=== PATIENT | male | born 1955 | race Caucasian/White ===

== ENCOUNTER 2022-11-10 09:04 | Inpatient (IN) | payer OTHER ==
[~2022-11-10] VITALS: Ht 299.7 cm; Wt 5.0 kg
--- NOTE | 2022-11-10 09:15 | NUR ---
SE RECIBE PACIENTE DE CRUCERO DE AMBULANCIA ALERTA Y ORIENTADO X3 QUIEN REFIERE DIFICULTAD RESPIRATORIA. SE MONITOREAN LOS SV Y SE UBICA EN CHEST PAIN
[2022-11-10] MEDS ORDERED: RANEXA500 MG PO (09:29)
[2022-11-10] MEDS ORDERED: ENTRESTO 24 MG1 EACH PO (09:29)
[2022-11-10] MEDS ORDERED: CARVEDILOL ER40 MG PO (09:30)
[2022-11-10] MEDS ORDERED: MEXILETINE HCL150 MG PO (09:30)
[2022-11-10] MEDS ORDERED: GLUMETZA500 MG PO (09:30)
[2022-11-10] MEDS ORDERED: BUMETANIDE2 MG PO (09:31)
[2022-11-10] MEDS ORDERED: GLIMEPIRIDE2 M1 PO (09:31)
[2022-11-10] MEDS ORDERED: XARELTO10 MG PO (09:31)
[2022-11-10] MEDS ORDERED: ALDACTONE25 MG PO (09:31)
[2022-11-10] MEDS ORDERED: FARXIGA10 MG PO (09:32)
[2022-11-10] MEDS ORDERED: ATORVASTATIN CA80 MG PO (09:32)
[2022-11-10] MEDS ORDERED: ISOSORBIDE MONO60 MG PO (09:32)
[2022-11-10] MEDS ORDERED: AMIODARONE HCL100 MG PO (09:32)
[2022-11-10] MEDS ORDERED: ASA81 MG PO (09:33)
--- NOTE | 2022-11-10 16:03 | NUR ---
SE RECIBE PTE MASCULINO DE 67 ANOS ALERTA Y ORIENTADO X3 QUIEN AL MOMENTO NO REFIERE DOLOR. PTE SE OBSERBA EN DESCANSO ABSOLUTO EN CAMA CONECTADO A MONITOR CARDIACO BERNARD. PTE SE MANTIENE EN CAMA BAJA CON BARANDAS ELEVADAS POR PREVENCION A CAIDAS. PTE PEND A ECHO DOPPLER Y CONSULTA CON MEDICINA INTERNA.
[2022-11-12] MEDS ORDERED: CARVEDILOL25 M1 (08:27)
[2022-11-12] MEDS ORDERED: PANTOPRAZOLE SO40 MG (08:27)
== END 2022-11-17 10:23 | disposition home or self-care (01) | DRG 291 ==
LOC: ER 09:04 → SEC-K 20:07 → MEDJ 20:07
PROVIDERS: ADMIT Internal Medicine; ATTEND Internal Medicine
PROC: B24BYZZ Ultrasonography of Heart with Aorta using Other Contrast (ICD-10-PCS; 2022-11-10)
PROC: 4A12X4Z Monitoring of Cardiac Electrical Activity, External Approach (ICD-10-PCS; principal; 2022-11-12)
DX: I13.0 Hypertensive heart and chronic kidney disease with heart failure and stage 1 through stage 4 chronic kidney disease, or unspecified chronic kidney disease (principal); I50.23 Acute on chronic systolic (congestive) heart failure; N17.9 Acute kidney failure, unspecified; I25.10 Atherosclerotic heart disease of native coronary artery without angina pectoris; I48.0 Paroxysmal atrial fibrillation; E11.65 Type 2 diabetes mellitus with hyperglycemia; E11.22 Type 2 diabetes mellitus with diabetic chronic kidney disease; E11.8 Type 2 diabetes mellitus with unspecified complications; E66.09 Other obesity due to excess calories; N18.9 Chronic kidney disease, unspecified; D63.1 Anemia in chronic kidney disease; Z95.810 Presence of automatic (implantable) cardiac defibrillator; Z79.4 Long term (current) use of insulin; Z68.33 Body mass index [BMI] 33.0-33.9, adult